=== PATIENT | female | born 1965 | race Two or more races ===

== ENCOUNTER 2019-11-09 12:06 | Emergency (ER) | payer OTHER ==
[~2019-11-09] VITALS: Ht 154.9 cm; Wt 99.8 kg
--- NOTE | 2019-11-09 12:43 | Emergency Room Report ---
History of Present Illness General Chief Complaint: Dizziness Source: Patient Present Illness HPI 54-year-old female with a history of hypertension, prediabetes, comes to the ER for complaints of sudden onset dizziness that started 20 minutes prior to arrival, she reports it resolved without interventions, and now she feels short of breath. She denies any headache, numbness, tingling, weakness, nausea, vomiting, or any other symptoms at all. Patient is concerned that her mother had diabetes and that she has prediabetes. Check of 120 according to nurse, patient informed of this and still feels worried. Allergies: Coded Allergies: No Known Allergies (Unverified , 11/09/19) Patient History Past Medical History: see triage record Reviewed Nursing Documentation: PMH: Agreed; PSxH: Agreed Nursing Documentation-PMH Past Medical History: No History, Except For Hx Hypertension: Yes Hx Diabetes: Yes Review of Systems All Other Systems: negative except mentioned in HPI Physical Exam Vital Signs Date Time Temp Pulse Resp B/P (MAP) Pulse Ox O2 Delivery O2 Flow Rate FiO2 11/09/19 11:56 97.5 86 19 151/88 (109) 95 Room Air Sp02 EP Interpretation: reviewed, normal General Appearance: no apparent distress, alert, non-toxic Head: normocephalic Eyes: bilateral eye normal inspection, bilateral eye PERRL, bilateral eye EOMI ENT: normal ENT inspection, hearing grossly normal, normal pharynx, no angioedema, normal voice, moist mucus membranes Neck: normal inspection, full range of motion, supple, supple/symm/no masses Respiratory: chest non-tender, lungs clear, normal breath sounds, chest symmetrical, palpation of chest normal Cardiovascular #1: normal peripheral pulses, regular rate, rhythm Cardiovascular #2: 2+ radial (R), 2+ radial (L) Gastrointestinal: normal inspection, non tender, soft, no mass, no guarding, no rebound Rectal: deferred Genitourinary: normal inspection, no CVA tenderness Musculoskeletal: back normal, normal range of motion, no calf tenderness, gait/ station normal, non-tender Neurologic: alert, motor strength/tone normal, cold meat chef III-XII nml as tested, sensory intact, responsive, speech normal Psychiatric: judgement/insight normal, memory normal, mood/affect normal Skin: warm/dry Lymphatic: no adenopathy Medical Decision Making Diagnostic Impression: Primary Impression: Dizziness ER Course 54yo F with dizziness that resolved on its own, then started developing tingling in fingers of both hands, as well as sore throat, denied rash, syncope , throat closing sensation, nausea, abdominal pain. Patient with panic attack, head CT, labs, generally unremarkable, chest x-ray with mild cardiomegaly, no previous chest x-rays with which to compare, EKG also unremarkable, will discharge with PMD follow-up. Do not suspect stroke, or any other acute pathology. Patient's throat exam and phonation also normal, do not suspect strep pharyngitis, tonsillitis, nor allergic reaction. EKG Diagnostic Results EKG Time: 12:20 EP Interpretation: no stemi Rate: normal Rhythm: NSR ST Segments: no acute changes Rhythm Strip Diag. Results Rhythm Strip Time: 12:42 EP Interpretation: yes Rate: 74 Rhythm: NSR, no PVC's, no ectopy Chest X-Ray Diagnostic Results Chest X-Ray Diagnostic Results : Chest X-Ray Ordered: Yes # of Views/Limited/Complete: 1 View Indication: Other EP Interpretation: Yes Interpretation: no consolidation, no effusion, no pneumothorax, no acute cardiopulmonary disease Impression: No acute disease Electronically Signed by: Selvin Devi MD CT/MRI/US Diagnostic Results CT/MRI/US Diagnostic Results : Imaging Test Ordered: ct brain Last Vital Signs Date Time Temp Pulse Resp B/P (MAP) Pulse Ox O2 Delivery O2 Flow Rate FiO2 11/09/19 11:56 97.5 86 19 151/88 (109) 95 Room Air Disposition: HOME, SELF-CARE Condition: Stable SELVIN DEVI M.D Nov 09, 2019 12:43
[2019-11-09] MEDS ORDERED: Meclizine 25mg tab ORAL ONE (12:45)
[2019-11-09] MEDS ORDERED: LORazepam 0.5mg tab ORAL ONE (12:45)
[2019-11-09 12:56] LABS: ANION GAP 8 mmol/L (5-15); BLOOD UREA NITROGEN 11 mg/dL (7-18); CALCIUM 9.4 MG/DL (8.5-10.1); CARBON DIOXIDE 29 MMOL/L (21-32); CHLORIDE 102 MMOL/L (98-107); CREATININE 0.7 MG/DL (0.55-1.30); POTASSIUM 3.6 MMOL/L (3.5-5.1); SODIUM 139 MMOL/L (136-145)
[2019-11-09 12:57] VITALS: BP 151/88
[2019-11-09 13:01] LABS: ALANINE AMINOTRANSFERASE 58 U/L (12-78); ALBUMIN 3.6 G/DL (3.4-5.0); ALBUMIN/GLOBULIN RATIO 0.8 (1.0-2.7); ALKALINE PHOSPHATASE 107 U/L (46-116); ASPARTATE AMINO TRANSFERASE 43 U/L (15-37); BILIRUBIN,TOTAL 0.3 MG/DL (0.2-1.0)
--- NOTE | 2019-11-09 13:20 | Diagnostic Imaging Report ---
Indications: Headache, dizziness Technique: Spiral acquisitions obtained through the brain. Angled axial and coronal 5 x 5 mm slices were reconstructed. Total dose length product 1214 mGycm. CTDI vol(s) 60 mGy. Dose reduction achieved using automated exposure control Comparison: None. Findings: No acute intracranial hemorrhage or edema. No mass effect nor midline shift. Normal kevin-white differentiation. Normal size ventricles and extra axial CSF spaces. Intact calvarium. Visualized orbits and sinuses are unremarkable. The mastoids are clear Impression: Negative The CT scanner at [facility] is accredited by the [employer] and the scans are performed using protocols designed to limit radiation exposure to as low as reasonably achievable to attain images of sufficient resolution adequate for diagnostic evaluation.
[2019-11-09] MEDS ORDERED: IBUPROFEN600 MG ORAL (13:56)
[2019-11-09] MEDS ORDERED: CHLORASEPTIC S1 EACH MM (13:56)
[2019-11-09 14:12] LABS: BASOPHILS % (AUTO) 1.2 % (0.0-2.0); EOSINOPHILS % (AUTO) 3.6 % (0.0-3.0); HEMATOCRIT 41.2 % (37.0-47.0); HEMOGLOBIN 13.8 G/DL (12.0-16.0); LYMPHOCYTES % (AUTO) 35.1 % (20.0-45.0); MEAN CORPUSCULAR VOLUME 86 FL (80-99); MONOCYTES % (AUTO) 9.6 % (1.0-10.0); NEUTROPHILS % (AUTO) 50.5 % (45.0-75.0); PLATELET COUNT 399 K/UL (150-450); RED CELL DISTRIBUTION WIDTH 11.1 % (11.6-14.8); WHITE BLOOD COUNT 6.1 K/UL (4.8-10.8)
--- NOTE | 2019-11-09 14:19 | Diagnostic Imaging Report ---
Indication: Chest pain Technique: One view of the chest Comparison: none Findings: Body habitus limits evaluation. The heart is borderline enlarged. The lungs and pleural spaces are clear. Impression: Borderline cardiomegaly. No definite acute process
[2019-11-09 14:27] VITALS: BP 157/73
== END 2019-11-09 14:32 | disposition home or self-care (01) ==
LOC: EDBD 12:06 → EMR 12:35
DX: R42 Dizziness and giddiness (principal); I10 Essential (primary) hypertension; R73.03 Prediabetes; I51.7 Cardiomegaly
CPT/HCPCS: 36415; 70450; 71045; 80053; 82962; 84484; 85025; 93005; Z7502; 99284